=== PATIENT | female | born 1955 | race Caucasian/White ===

== ENCOUNTER 2025-03-31 20:53 | Inpatient (IN) | payer OTHER ==
[~2025-03-31] VITALS: Ht 165.1 cm; Wt 180.2 kg
[~2025-03-31 20:53] MED LIST: ALBU90OI; ALBU90OI INH; AMOCLA875 PO; AMOX500; CEPH500 PO; CETI10; CRUTCH3 USE; CYCL10 PO; FURO40; FURO40 PO; FURO80; HYDACE5 PO; IBUP800 PO; LANS30EC; LEVFLO500 PO; LEVSOD25 PO; METF500; METO5 PO; OMEP20ER PO; OXYACE5T PO; OXYACE7.5T PO; POTCHL10ER; POTCHL20ER PO; RXOXYACE PO; SPIR25; SPIR25 PO; THYROXINE; TRAM50 PO
[2025-03-31] MEDS ORDERED: Ipratropium/Albuterol SulF 2.5-0.5MG/3 ML Amp INH ONE (21:30)
[2025-03-31 21:53] LABS: BASOPHILS ABSOLUTE AUTO 0.06 K/mm3 (0.00-0.23); BASOPHILS PERCENT AUTO 1 % (0-2); EOSINOPHILS ABSOLUTE AUTO 0.21 K/mm3 (0.00-0.68); EOSINOPHILS PERCENT AUTO 3 % (0-6); Hematocrit 41.1 % (33.0-51.0); Hemoglobin 12.3 g/dL (11.5-16.0); IMMATURE GRAN ABSOLUTE AUTO 0.03 K/mm3 (0.00-0.10); IMMATURE GRAN PERCENT AUTO 0 % (0-1); LYMPHOCYTES ABSOLUTE AUTO 1.47 K/mm3 (0.84-5.20); LYMPHOCYTES PERCENT AUTO 19 % (21-46); MONOCYTES ABSOLUTE AUTO 0.65 K/mm3 (0.16-1.47); MONOCYTES PERCENT AUTO 8 % (4-13); Mean Corpuscular HGB Conc 29.9 g/dL (31.5-36.5); Mean Corpuscular Volume 99 fL (80-100); NEUTROPHILS ABSOLUTE AUTO 5.44 K/mm3 (1.96-9.15); NEUTROPHILS PERCENT AUTO 69 % (41-73); NRBC ABSOLUTE 0.00 K/mm3 (0.00-0.02); NRBC Auto 0.0 /100 WBC (0.0-0.2); Platelet Count 196 K/mm3 (150-400); RDW Coefficient Variation 14.7 % (11.7-14.2); RDW Standard Deviation 53.8 fL (35.1-46.3)
[2025-03-31 22:07] LABS: Anion Gap 5.0 mmol/L (3-11); Blood Urea Nitrogen 15.0 mg/dL (8-24); CO2, Blood 42.0 mmol/L (21-32); Calcium, Blood 9.2 mg/dL (8.5-10.1); Chloride, Blood 94.0 mmol/L (98-108); Creatinine, Blood 0.81 mg/dL (0.40-1.00); Glucose, Blood 159.0 mg/dL (70-99); Potassium, Blood 3.8 mmol/L (3.5-5.5); Sodium, Blood 137.0 mmol/L (136-145)
[2025-04-01] MEDS ORDERED: Ipratropium/Albuterol SulF 2.5-0.5MG/3 ML Amp INH ONE (00:40)
[2025-04-01 00:54] LABS: pH Blood Venous 7.45 (7.34-7.37)
[2025-04-01 01:17] LABS: Influenza A, PCR NEGATIVE (NEGATIVE); Influenza B, PCR NEGATIVE (NEGATIVE); Resp Syncytial Virus, PCR NEGATIVE (NEGATIVE); SARS-Cov-2 (COVID-19) PCR, MMC NEGATIVE (NEGATIVE)
[2025-04-01] MEDS ORDERED: FLU VACC TS2025-26(6MOS UP)/PF 45 MCG/0.5 ML SYRINGE IM ONE (02:50)
[2025-04-01] MEDS ORDERED: Furosemide 10 MG / ML 2ML Vial IV SCH (03:00)
[2025-04-01 05:34] LABS: Anti-Xa UFH, PHA Monitoring <0.10 IU/mL; D-Dimer, Quantitative 1.61 mg/L FEU (0.00-0.52); Prothrombin Time Results 11.9 Sec (9.7-11.5)
[2025-04-01] MEDS ORDERED: Insulin Human Lispro 100 Units/ML 3ML Syringe SC SCH ×2 (07:30→16:30)
[2025-04-01] MEDS ORDERED: Heparin Sodium,Porcine/0.5 NS 500 ML IV SCH (07:30)
[2025-04-01 08:35] LABS: Anion Gap 8.0 mmol/L (3-11); Blood Urea Nitrogen 16.0 mg/dL (8-24); CO2, Blood 42.0 mmol/L (21-32); Calcium, Blood 9.2 mg/dL (8.5-10.1); Chloride, Blood 91.0 mmol/L (98-108); Creatinine, Blood 0.73 mg/dL (0.40-1.00); Glucose, Blood 245.0 mg/dL (70-99); Magnesium, Blood 1.6 mg/dL (1.6-2.4); Potassium, Blood 3.8 mmol/L (3.5-5.5); Sodium, Blood 137.0 mmol/L (136-145)
[2025-04-01] MEDS ORDERED: Magnesium Sulf 2 GM/Water 50ML 50 ML IV ONE (12:10)
[2025-04-01] MEDS ORDERED: Enoxaparin 100 MG/ML 1ML SYR SC SCH (13:00)
[2025-04-01] MEDS ORDERED: CETI5 PO (15:22)
[2025-04-01] MEDS ORDERED: OMEP20ER PO (15:22)
[2025-04-01] MEDS ORDERED: LEVSOD75 PO (15:22)
[2025-04-01] MEDS ORDERED: ASPI81CH PO (15:23)
[2025-04-01] MEDS ORDERED: DULERA 100 MCG/13 GM INH (15:23)
[2025-04-01 16:07] VITALS: BP 129/58
--- NOTE | 2025-04-01 18:20 | NUR ---
SHIFT SUMMARY PT ADMITTED FROM ER FOR CHF EXACERBATION. 60MG IV LASIX GIVEN IN ER, GOOD URINE OUTPUT TO PUREWICK WITH CLEAR YELLOW URINE. PT SKIN EXCORIATED UNDER SKIN FOLDS, CLEANSED, POWDER APPLIED AND CLOTH PLACED UNDER PANIS. PT BED BOUND/LIFT PT D/T RLE PAIN AND SOB. A&OX4, VSS, 4 L O2 NC, AFIB IN 80S ON TELE. ABLE TO MAKE NEEDS KNOWN, CALL LIGHT IN REACH.
[2025-04-01 19:21] VITALS: BP 149/70
[2025-04-01] MEDS ORDERED: Miconazole Nitrate 2% 85 GM PWD TOP SCH (21:00)
[2025-04-02] VITALS (7 sets, daily range): BP systolic 125–138; BP diastolic 53–88
[2025-04-02] MEDS ORDERED: Enoxaparin 150 MG/ML 1ML SYR SC SCH
--- NOTE | 2025-04-02 04:36 | NUR ---
SHIFT SUMMARY: PT AOX4, LIFT PATINENT. CALLS APPROPRIATELY AND ABLE TO MAKE NEEDS KNOWN. ABLE TO ASSIST IN TURNS, STILL 2P TURN. CONTINENT, AND ABLE TO VOID WITH BED GRANDA. PUREWICK FOR OCCASIONAL LEAKING. TOLERATING MEDICATIONS WELL. STATES TO BE FEELING MUCH BETTER. SWELLING APPEARS TO HAVE GONE DOWN SIGNIFICANTLY. PT ON 4L OF O2 WHICH IS THEIR BL, REFUSING CPAP THIS EVENING. SOME PAIN IN R LEG, MEDICATED PER EMR. NO ACUTE OVERNIGHT EVENTS. PT IN BED RESTING, BED IN LOWEST POSITION, CALL LIGHT IN REACH. CONTINUING CARE.
[2025-04-02 06:06] LABS: BASOPHILS ABSOLUTE AUTO 0.02 K/mm3 (0.00-0.23); BASOPHILS PERCENT AUTO 0 % (0-2); EOSINOPHILS ABSOLUTE AUTO 0.00 K/mm3 (0.00-0.68); EOSINOPHILS PERCENT AUTO 0 % (0-6); Hematocrit 41.3 % (33.0-51.0); Hemoglobin 12.4 g/dL (11.5-16.0); IMMATURE GRAN ABSOLUTE AUTO 0.03 K/mm3 (0.00-0.10); IMMATURE GRAN PERCENT AUTO 0 % (0-1); LYMPHOCYTES ABSOLUTE AUTO 0.93 K/mm3 (0.84-5.20); LYMPHOCYTES PERCENT AUTO 10 % (21-46); MONOCYTES ABSOLUTE AUTO 0.86 K/mm3 (0.16-1.47); MONOCYTES PERCENT AUTO 9 % (4-13); Mean Corpuscular HGB Conc 30.0 g/dL (31.5-36.5); Mean Corpuscular Volume 99 fL (80-100); NEUTROPHILS ABSOLUTE AUTO 7.37 K/mm3 (1.96-9.15); NEUTROPHILS PERCENT AUTO 80 % (41-73); NRBC ABSOLUTE 0.00 K/mm3 (0.00-0.02); NRBC Auto 0.0 /100 WBC (0.0-0.2); Platelet Count 224 K/mm3 (150-400); RDW Coefficient Variation 14.7 % (11.7-14.2); RDW Standard Deviation 54.3 fL (35.1-46.3)
[2025-04-02 06:57] LABS: Alanine Aminotransfer (ALT/SGP 29 U/L (12-78); Albumin, Blood 3.3 g/dL (3.4-5.0); Albumin/Globulin Ratio 0.8 (0.8-1.8); Anion Gap Unable to Calculate mmol/L (3-11); Aspartate Aminotrans (AST/SGOT 21 U/L (12-37); Bilirubin, Total 0.7 mg/dL (0.1-1.0); Blood Urea Nitrogen 19 mg/dL (8-24); CO2, Blood >45 mmol/L (21-32); Calcium, Blood 9.2 mg/dL (8.5-10.1); Chloride, Blood 91 mmol/L (98-108); Creatinine, Blood 0.78 mg/dL (0.40-1.00); Globulin, Blood 3.9 g/dL (2.2-4.0); Glucose, Blood 136 mg/dL (70-99); Potassium, Blood 3.7 mmol/L (3.5-5.5); Sodium, Blood 136 mmol/L (136-145); Total Protein, Blood 7.2 g/dL (6.4-8.2)
[2025-04-02 10:02] LABS: pH Blood Arterial 7.36 (7.35-7.45)
[2025-04-02] MEDS ORDERED: CHLO25B PO (11:23)
[2025-04-02] MEDS ORDERED: GLIPIZIDE ER2.5 MG PO (11:24)
--- NOTE | 2025-04-02 17:54 | NUR ---
End of shift summary: Patient is alert and oriented x4; pleasant and cooperative with care. Patient on baseline 4L oxygen via NC; noted SOB with exertion. Patient with purewick in place and utilizing bedpan for urination; requires 2 person assist. Patient with complaint of pain and medicated per EMAR. No acute changes this shift. All medications administered per EMAR. Patient utilizing call light appropriately; call light within reach, bed in lowest position. Will continue to monitor until next shift nurse arrives and report is given.
[2025-04-03] MEDS ORDERED: Albuterol 2.5 MG/3 ML VIAL INH PRN (01:00)
[2025-04-03] MEDS ORDERED: Ipratropium/Albuterol SulF 2.5-0.5MG/3 ML Amp INH SCH (01:00)
[2025-04-03] MEDS ORDERED: Formoterol/Mometasone MDI 5/100 mcg 13 GM INH SCH (01:20)
[2025-04-03 03:40] VITALS: BP 147/64
[2025-04-03 05:06] LABS: pH Blood Venous 7.41 (7.34-7.37)
[2025-04-03 06:02] LABS: BASOPHILS ABSOLUTE AUTO 0.07 K/mm3 (0.00-0.23); BASOPHILS PERCENT AUTO 1 % (0-2); EOSINOPHILS ABSOLUTE AUTO 0.16 K/mm3 (0.00-0.68); EOSINOPHILS PERCENT AUTO 2 % (0-6); Hematocrit 40.2 % (33.0-51.0); Hemoglobin 11.9 g/dL (11.5-16.0); IMMATURE GRAN ABSOLUTE AUTO 0.01 K/mm3 (0.00-0.10); IMMATURE GRAN PERCENT AUTO 0 % (0-1); LYMPHOCYTES ABSOLUTE AUTO 1.83 K/mm3 (0.84-5.20); LYMPHOCYTES PERCENT AUTO 20 % (21-46); MONOCYTES ABSOLUTE AUTO 0.85 K/mm3 (0.16-1.47); MONOCYTES PERCENT AUTO 9 % (4-13); Mean Corpuscular HGB Conc 29.6 g/dL (31.5-36.5); Mean Corpuscular Volume 99 fL (80-100); NEUTROPHILS ABSOLUTE AUTO 6.10 K/mm3 (1.96-9.15); NEUTROPHILS PERCENT AUTO 68 % (41-73); NRBC ABSOLUTE 0.00 K/mm3 (0.00-0.02); NRBC Auto 0.0 /100 WBC (0.0-0.2); Platelet Count 206 K/mm3 (150-400); RDW Coefficient Variation 14.9 % (11.7-14.2); RDW Standard Deviation 54.3 fL (35.1-46.3)
--- NOTE | 2025-04-03 06:43 | NUR ---
SHIFT SUMMARY A/Ox4, VSS ON 3-5L. RT CONTACTED FOR WHEEZY, SOB WITH PRODUCTIVE COUGH. POSITIONING AND BREATHING TREATMENTS EFFECTIVE. NO CPAP USE OVERNIGHT. STRICT I/Os MONITORED. AFLUTTER ON TELE. ORTHOPNEA NOTED. R HIP/R GROIN PAIN MANAGED WITH TRAMADOL. ROOMING IN. PT STATED "GOUT MAY BE FLARING UP" AT R BIG TOE, PT WOULD APPRECIATE HOME COLCHICINE ORDER, HOWEVER SHE DOES NOT HAVE DOSAGE INFO AT THIS TIME.
[2025-04-03 07:28] VITALS: BP 125/67
[2025-04-03 07:51] LABS: Alanine Aminotransfer (ALT/SGP 31 U/L (12-78); Albumin, Blood 3.3 g/dL (3.4-5.0); Albumin/Globulin Ratio 0.9 (0.8-1.8); Anion Gap Unable to Calculate mmol/L (3-11); Aspartate Aminotrans (AST/SGOT 30 U/L (12-37); Bilirubin, Total 0.9 mg/dL (0.1-1.0); Blood Urea Nitrogen 22 mg/dL (8-24); Calcium, Blood 9.1 mg/dL (8.5-10.1); Chloride, Blood 88 mmol/L (98-108); Creatinine, Blood 0.86 mg/dL (0.40-1.00); Globulin, Blood 3.6 g/dL (2.2-4.0); Glucose, Blood 118 mg/dL (70-99); Potassium, Blood 3.4 mmol/L (3.5-5.5); Sodium, Blood 134 mmol/L (136-145); Total Protein, Blood 6.9 g/dL (6.4-8.2)
[2025-04-03 07:52] LABS: CO2, Blood >45 mmol/L (21-32)
[2025-04-03 14:58] VITALS: BP 90/68
--- NOTE | 2025-04-03 15:00 | NUR ---
PT ARRIVED AT APPROX 1450 VIA HOSPITAL BED. VSS. PT ON 4L O2 VIA NC. NO C/O SOB. NO C/O CHEST PAIN/PRESSURE. PT AOX4. ABLE TO MAKE NEEDS KNOWN. FAMILY AT BEDSIDE. PT STABLE, RESTING COMFORTABLY IN BED. CALL LIGHT WITHIN REACH AND PT ABLE TO MAKE ALL NEEDS KNOWN. PER PT HER BASELINE O2 IS 3-4L AT HOME.
[2025-04-03] MEDS ORDERED: Colchicine 0.6 MG TAB PO STA (16:17)
[2025-04-03 17:20] VITALS: BP 136/63
--- NOTE | 2025-04-03 17:56 | NUR ---
ASSUMED CARE PT A/O X 4 AT BEDSIDE, NO C/O PAIN NO DISTRESS, LABS AND NEED FOR CPAP EXPLAINED TO PT AND FAMILY, EDUCATED PT ON THE IMPORTANCE OF CPAP, PT AGREED TO WEAR FOR LONG SHE COULD BUT WAS ONLY ABLE T HAVE ON FOR 5 MINS BEFORE REMOVING. PT MAINTAING O2 ON 4L NC,. PT HAVING MORE AND MORE DIFFICULTY STAYING CONTINENT WITH HI VOLUME OF URINE. FAMILY ASKED FOR CASTANEDA TO BE PLACED FOR FEAR OF SKIN BREAKDOWN. CASTANEDA WAS INSERTED PER MD, PT [facility].
[2025-04-03] MEDS ORDERED: Colchicine 0.6 MG TAB PO SCH (18:00)
--- NOTE | 2025-04-03 18:18 | NUR ---
VSS. 3-4L O2 VIA NC. PT INTERMITTENTNLY WEARING CPAP D/T ANXIETY. MD NOTIFIED OF INCREASED ANXIETY, PRN ATARAX ADDED. PT WANTING TO WAIT TO TAKE FIRST DOSE UNTIL BED TIME SO THAT SHE MAY BE MORE COMFORTABLE AND MORE LIKELY TO BE COMPLIANT WITH CPAP WHILE SLEEPING. PT C/O LOW BACK AND LEG PAIN, REPOSITIONED FOR RELIEF. PRN TORADOL Q8H AVAILABLE FOR PAIN. PT IN BARIATRIC BED. FAMILY AT BEDSIDE. COLCHICINE LOADING DOSE GIVEN PER PHARMACY WITH ADDITIONAL SCHEDULED DOSE GIVEN 1HR LATER PER PHARMACY. PT AOX4. NO C/O CHEST PAIN/PRESSURE.
[2025-04-03 19:45] VITALS: BP 131/63
[2025-04-03] MEDS ORDERED: Ondansetron HCl 2 MG / ML 2ML Vial IV ONE ×2 (23:00)
[2025-04-03] MEDS ORDERED: Ondansetron HCl 2 MG / ML 2ML Vial IV PRN ×2 (23:00)
[2025-04-03 23:38] VITALS: BP 136/75
[2025-04-04 04:45] VITALS: BP 121/73
--- NOTE | 2025-04-04 04:50 | NUR ---
SHIFT SUMMARY PT A&O X4. ABLE TO MAKE NEEDS KNOWN. MEDICATED PER EMAR AT BEGINNING OF SHIFT FOR ANXIETY/PAIN. PT WAS SWITCHED FROM CPAP TO BIPAP AND HAS TOLERATED FULL MASK BIPAP SINCE 2300. REPEAT VBG ORDERED FOR THIS AM. PT NEEDING 10L BLEED IN MOST OF THE NIGHT TO MAINTAIN SPO2 WHILE ON BIPAP. ON 4-5L VIA NC WHILE AWAKE. BP STABLE. AFEBRILE. AFLUTTER ON MONITOR WITH HR 80-90S. REDNESS IN MOST SKIN FOLDS T/O BODY, ANTIFUNGAL POWDER AND SILVER CLOTH APPLIED. POOR BED MOBILITY. REPOSITIONING Q2HRS. CASTANEDA CATHETER PATENT AND DRAINING TO GRAVITY. >2L OUT DURING THIS SHIFT. AT BEDSIDE. BED IN LOWEST POSITION AND CALL LIGHT WITHIN REACH. THIS RN WILL REPORT TO ONCOMING DAYSHIFT RN.
[2025-04-04 05:01] LABS: pH Blood Venous 7.45 (7.34-7.37)
[2025-04-04 05:32] LABS: BASOPHILS ABSOLUTE AUTO 0.06 K/mm3 (0.00-0.23); BASOPHILS PERCENT AUTO 1 % (0-2); EOSINOPHILS ABSOLUTE AUTO 0.22 K/mm3 (0.00-0.68); EOSINOPHILS PERCENT AUTO 3 % (0-6); Hematocrit 41.1 % (33.0-51.0); Hemoglobin 12.4 g/dL (11.5-16.0); IMMATURE GRAN ABSOLUTE AUTO 0.02 K/mm3 (0.00-0.10); IMMATURE GRAN PERCENT AUTO 0 % (0-1); LYMPHOCYTES ABSOLUTE AUTO 1.80 K/mm3 (0.84-5.20); LYMPHOCYTES PERCENT AUTO 27 % (21-46); MONOCYTES ABSOLUTE AUTO 0.78 K/mm3 (0.16-1.47); MONOCYTES PERCENT AUTO 12 % (4-13); Mean Corpuscular HGB Conc 30.2 g/dL (31.5-36.5); Mean Corpuscular Volume 99 fL (80-100); NEUTROPHILS ABSOLUTE AUTO 3.85 K/mm3 (1.96-9.15); NEUTROPHILS PERCENT AUTO 57 % (41-73); NRBC ABSOLUTE 0.00 K/mm3 (0.00-0.02); NRBC Auto 0.0 /100 WBC (0.0-0.2); Platelet Count 202 K/mm3 (150-400); RDW Coefficient Variation 14.9 % (11.7-14.2); RDW Standard Deviation 54.7 fL (35.1-46.3)
[2025-04-04 06:13] LABS: Alanine Aminotransfer (ALT/SGP 34 U/L (12-78); Albumin, Blood 3.3 g/dL (3.4-5.0); Albumin/Globulin Ratio 0.9 (0.8-1.8); Aspartate Aminotrans (AST/SGOT 32 U/L (12-37); Bilirubin, Total 0.9 mg/dL (0.1-1.0); Blood Urea Nitrogen 23 mg/dL (8-24); Calcium, Blood 8.8 mg/dL (8.5-10.1); Chloride, Blood 89 mmol/L (98-108); Creatinine, Blood 0.83 mg/dL (0.40-1.00); Globulin, Blood 3.7 g/dL (2.2-4.0); Glucose, Blood 120 mg/dL (70-99); Potassium, Blood 3.5 mmol/L (3.5-5.5); Sodium, Blood 136 mmol/L (136-145); Total Protein, Blood 7.0 g/dL (6.4-8.2)
[2025-04-04 06:14] LABS: Anion Gap Unable to Calculate mmol/L (3-11); CO2, Blood >45 mmol/L (21-32)
[2025-04-04 07:51] VITALS: BP 127/72
[2025-04-04 15:17] VITALS: BP 148/74
--- NOTE | 2025-04-04 17:55 | NUR ---
SHIFT SUMMARY PT ON 5L VIA NC WHILE AWAKE. PT TRIES TO WEAR CPAP WHILE SLEEPING BUT CAN ONLY TOLERATE IT FOR SHORT PERIODS D/T CLAUSTROPHOBIA. PT DESATS WITH REPOSITIONING. NEEDS CUES TO DEEP BREATH. PT HOLDS BREATH WHEN ROLLING. RESATS WELL AFTER DEEP BREATHING THROUGH NC. PUREWICK IN PLACE. SLING IN PLACE. USE LIFT FOR REPOSITIONING HIGHER IN BED. PT AGREEABLE TO CONTINUE TRYING TO USE THE CPAP MUCH POSSIBLE. PT HAS HOME BIPAP AND IS MORE COMFORTABLE WEARING IT. WILL BE TRYING TO LOCATE IT IT IS CURRENTLY PACKED AND HE IS NOT SURE WHICH BOX IT IS IN. ALL OTHER VSS STABLE. AC/HS CBG. AOX4. IS BEDSIDE. NO C/O CHEST PAIN/PRESSURE.
[2025-04-04 20:02] VITALS: BP 129/75
--- NOTE | 2025-04-04 22:37 | NUR ---
PATIENT UPDATE CALL PLACED TO MD VITALE REGARDING PT BECOMING INCREASINGLY ANXIOUS AND BEING UNABLE TO WEAR BIPAP FOR SLEEP. PT REQUESTING SOMETHING TO HELP HER WITH THE ANXIETY. PREVIOUSLY WAS MEDICATED WITH ATARAX PER EMAR. MD VITALE WITH ORDER FOR PO ATIVAN. WILL MEDICATE PER EMAR.
[2025-04-04 23:10] VITALS: BP 139/68
[2025-04-05 03:39] VITALS: BP 134/83
--- NOTE | 2025-04-05 04:37 | NUR ---
SHIFT SUMMARY SEE PREVIOUS NOTE PT A&O X4. ABLE TO MAKE NEEDS KNOWN. PT TOLERATING BIPAP SINCE ATIVAN DOSE. NEEDING 12L BLEED IN TO MAINTAIN SPO2. OCCASIONAL DIFFICULTY WITH GOOD SEAL FOR MASK; PT STILL MOVING MASK OCCASIONALLY BUT HAS MOSTLY LEFT IT ALONE/ON. CONTINUES TO NEED 4-5L VIA NC WHILE AWAKE. AFEBRILE. BP STABLE. AFLUTTER WITH HR 70-80S. REPOSITIONING Q2HRS. LIFT SHEET IN PLACE. PAINFUL WITH MOVEMENTS. MEDICATING PER EMAR. PUREWICK IN PLACE. AT BEDSIDE. BED IN LOWEST POSITION AND CALL LIGHT WITHIN REACH. THIS RN WILL REPORT TO ONCOMING DAYSHIFT RN.
[2025-04-05 08:07] VITALS: BP 133/74
[2025-04-05 08:32] LABS: Anion Gap Unable to Calculate mmol/L (3-11); Blood Urea Nitrogen 22 mg/dL (8-24); Calcium, Blood 9.0 mg/dL (8.5-10.1); Chloride, Blood 87 mmol/L (98-108); Creatinine, Blood 0.91 mg/dL (0.40-1.00); Glucose, Blood 130 mg/dL (70-99); Potassium, Blood 3.5 mmol/L (3.5-5.5); Sodium, Blood 135 mmol/L (136-145)
[2025-04-05 08:33] LABS: CO2, Blood >45 mmol/L (21-32)
--- NOTE | 2025-04-05 10:07 | NUR ---
am note this rn assumed care at 0700. vital signs stable. aflutter 90s. spo2 >90% on 4l nc, which is patient baseline. patient is sleepy, but will awake when stating patient name, but then will fall asleep mid conversation. states this is not patient normal behavior. patient denies pain, chest pain/pressure or shortness of breath. perrla. patient lung sounds upper lobes clear and lower lobes dim. patient had excoriation in folds-pannus, under breast, back and bottom. patient has blister on right anterior leg and bilateral reddness to lower legs. patient has bruise on left ac area of arm. photos taken today and are now in the chart. patient has purwick hooked up in room, with yellow urine. see shift assessment for further detials. patient morning labs came back with co2 >45 and this rn informed md puentes while he was on the floor and vbg ordered and small bipap placed at 0800. this rn called lab at 0935 to ask for update on vbg and to come draw it. vbg drawn. lab called with critical results co2 >105 and ph 7.28. this rn called md puentes and plan for v60 bipap to be put on and repeat vbg after an hour of being on bipap. this rn updated patient of plan. patient had bed bath and linen change this morning.
[2025-04-05 10:10] LABS: pH Blood Venous 7.28 (7.34-7.37)
[2025-04-05 11:10] VITALS: BP 118/57
[2025-04-05 11:38] LABS: pH Blood Venous 7.32 (7.34-7.37)
--- NOTE | 2025-04-05 11:41 | NUR ---
UPDATE md puentes in the room and discussing plan with the patient at 1125. 1138 notifed of vbg ph 7.32 and co2 99. this rn called md puentes and notifed of results. plan to keep bipap on at this time and monitor. this rn updated patient
[2025-04-05 16:30] VITALS: BP 141/112
--- NOTE | 2025-04-05 18:11 | NUR ---
shift summary patient has been on the bipap majority of the bed and off this evening for dinner. patient tolerating off of bipap on 4l nc. patient has been educated on how important it is to use bipap tonight while sleeping or taking naps and patient verablized understanding. is at bedside and helps encourage patient to keep mask on and to wear it. no acute changes. see previous notes.
[2025-04-05 19:37] VITALS: BP 134/76
[2025-04-05 23:37] VITALS: BP 143/75
[2025-04-06 03:02] VITALS: BP 140/73
--- NOTE | 2025-04-06 04:31 | NUR ---
SHIFT SUMMARY PT A&O X4, ABLE TO MAKE NEEDS KNOWN. VSS, AFEBRILE. PT WEARS 4L NC WHILE AWAKE AND BIPAP WHILE SLEEPING. SHE IS TOLERATING BIPAP WELL AT THIS TIME WITH SPO2 >93%. SHE DENIES SOB OR CP AT THIS TIME. PT HAS SIGNIFICANT REDNESS/ EXCORIATION OF PANNUS/ FOLDS. CLEANSED AND DRIED FOLDS AND APPLIED MICONAZOLE POWDER PER EMAR. PW IN PLACE WITH YELLOW URINE. BED IN LOWEST POSITION, CALL LIGHT IN REACH, BREATHING IS EVEN AND UNLABORED.
[2025-04-06 04:36] LABS: BASOPHILS ABSOLUTE AUTO 0.01 K/mm3 (0.00-0.23); BASOPHILS PERCENT AUTO 0 % (0-2); EOSINOPHILS ABSOLUTE AUTO 0.45 K/mm3 (0.00-0.68); EOSINOPHILS PERCENT AUTO 5 % (0-6); Hematocrit 41.4 % (33.0-51.0); Hemoglobin 12.6 g/dL (11.5-16.0); IMMATURE GRAN ABSOLUTE AUTO 0.03 K/mm3 (0.00-0.10); IMMATURE GRAN PERCENT AUTO 0 % (0-1); LYMPHOCYTES ABSOLUTE AUTO 1.03 K/mm3 (0.84-5.20); LYMPHOCYTES PERCENT AUTO 12 % (21-46); MONOCYTES ABSOLUTE AUTO 0.84 K/mm3 (0.16-1.47); MONOCYTES PERCENT AUTO 9 % (4-13); Mean Corpuscular HGB Conc 30.4 g/dL (31.5-36.5); Mean Corpuscular Volume 100 fL (80-100); NEUTROPHILS ABSOLUTE AUTO 6.63 K/mm3 (1.96-9.15); NEUTROPHILS PERCENT AUTO 74 % (41-73); NRBC ABSOLUTE 0.00 K/mm3 (0.00-0.02); NRBC Auto 0.0 /100 WBC (0.0-0.2); Platelet Count 191 K/mm3 (150-400); RDW Coefficient Variation 14.6 % (11.7-14.2); RDW Standard Deviation 53.4 fL (35.1-46.3)
[2025-04-06 05:11] LABS: Alanine Aminotransfer (ALT/SGP 37 U/L (12-78); Albumin, Blood 3.2 g/dL (3.4-5.0); Albumin/Globulin Ratio 0.9 (0.8-1.8); Anion Gap Unable to Calculate mmol/L (3-11); Aspartate Aminotrans (AST/SGOT 38 U/L (12-37); Bilirubin, Total 1.2 mg/dL (0.1-1.0); Blood Urea Nitrogen 19 mg/dL (8-24); Calcium, Blood 9.0 mg/dL (8.5-10.1); Chloride, Blood 86 mmol/L (98-108); Creatinine, Blood 0.75 mg/dL (0.40-1.00); Globulin, Blood 3.7 g/dL (2.2-4.0); Glucose, Blood 112 mg/dL (70-99); Potassium, Blood 3.0 mmol/L (3.5-5.5); Sodium, Blood 133 mmol/L (136-145); Total Protein, Blood 6.9 g/dL (6.4-8.2)
[2025-04-06 05:12] LABS: CO2, Blood >45 mmol/L (21-32)
[2025-04-06 07:48] VITALS: BP 147/74
[2025-04-06 11:10] VITALS: BP 132/67
[2025-04-06 15:48] VITALS: BP 131/60
--- NOTE | 2025-04-06 16:32 | NUR ---
SHIFT SUMMARY: PT ALERT AND ORIENTED X3, ABLE TO FOLLOW COMMANDS AND MAKE NEEDS KNOWN. FORGETFUL AT TIMES. STRENGTH WEAK, EQUAL BILATERALLY. BP STABLE. HR AFLUTTER 80S'. DENIES CP/PRESSURE. PT WITH +3 EDEMA IN BLE. PULSES PALPABLE. AFEBRILE. SPO2 >92% ON 4L NC- BIPAP WHILE SLEEPING, TOLERATES WELL. ABD DISTENDED, BOWEL SOUNDS +. NO BM THIS SHIFT. PT WITH PUREWICK IN PLACE, CONNECTED LCS. DIURESING WELL. OCCUPATIONAL THERAPY ABLE TO WORK WITH PT THIS AFTERNOON, PT ABLE TO TRANSFER TO RECLINER WITH 4 PERSON MAX ASSIST. REMAINS LIFT TRANSFER AT THIS TIME. REPOS Q2 TO MAINTAIN SKIN INTEGRITY. PT WITH RED EXORIATIONS TO LOWER BACK, SEE PICTURES IN CHART. AT BEDSIDE MAJORITY OF THE DAY, UPDATED ON PT PLAN OF CARE. BED IN LOW, CALL LIGHT IN REACH, WILL REPORT TO ONCOMING RN.
[2025-04-06 20:03] VITALS: BP 136/66
[2025-04-07 00:02] VITALS: BP 124/65
[2025-04-07 03:03] VITALS: BP 128/81
[2025-04-07 03:36] LABS: pH Blood Venous 7.54 (7.34-7.37)
[2025-04-07 03:49] LABS: BASOPHILS ABSOLUTE AUTO 0.02 K/mm3 (0.00-0.23); BASOPHILS PERCENT AUTO 0 % (0-2); EOSINOPHILS ABSOLUTE AUTO 0.45 K/mm3 (0.00-0.68); EOSINOPHILS PERCENT AUTO 6 % (0-6); Hematocrit 41.4 % (33.0-51.0); Hemoglobin 12.8 g/dL (11.5-16.0); IMMATURE GRAN ABSOLUTE AUTO 0.03 K/mm3 (0.00-0.10); IMMATURE GRAN PERCENT AUTO 0 % (0-1); LYMPHOCYTES ABSOLUTE AUTO 0.98 K/mm3 (0.84-5.20); LYMPHOCYTES PERCENT AUTO 12 % (21-46); MONOCYTES ABSOLUTE AUTO 0.81 K/mm3 (0.16-1.47); MONOCYTES PERCENT AUTO 10 % (4-13); Mean Corpuscular HGB Conc 30.9 g/dL (31.5-36.5); Mean Corpuscular Volume 98 fL (80-100); NEUTROPHILS ABSOLUTE AUTO 5.80 K/mm3 (1.96-9.15); NEUTROPHILS PERCENT AUTO 72 % (41-73); NRBC ABSOLUTE 0.00 K/mm3 (0.00-0.02); NRBC Auto 0.0 /100 WBC (0.0-0.2); Platelet Count 204 K/mm3 (150-400); RDW Coefficient Variation 14.7 % (11.7-14.2); RDW Standard Deviation 52.5 fL (35.1-46.3)
[2025-04-07 04:14] LABS: Alanine Aminotransfer (ALT/SGP 39 U/L (12-78); Albumin, Blood 3.1 g/dL (3.4-5.0); Albumin/Globulin Ratio 0.9 (0.8-1.8); Aspartate Aminotrans (AST/SGOT 39 U/L (12-37); Bilirubin, Total 1.4 mg/dL (0.1-1.0); Blood Urea Nitrogen 20 mg/dL (8-24); Calcium, Blood 8.9 mg/dL (8.5-10.1); Chloride, Blood 86 mmol/L (98-108); Creatinine, Blood 0.74 mg/dL (0.40-1.00); Globulin, Blood 3.5 g/dL (2.2-4.0); Glucose, Blood 124 mg/dL (70-99); Potassium, Blood 2.8 mmol/L (3.5-5.5); Sodium, Blood 135 mmol/L (136-145); Total Protein, Blood 6.6 g/dL (6.4-8.2)
[2025-04-07 04:16] LABS: Anion Gap Unable to Calculate mmol/L (3-11)
[2025-04-07 04:17] LABS: CO2, Blood >45 mmol/L (21-32)
--- NOTE | 2025-04-07 05:20 | NUR ---
NOC SHIFT SUMMARY PT IS A&O X3-4, CONFUSED AT TIMES, SHE HAS NOT GOT MUCH SLEEP SINCE ADMIT AND CO2 REMAINS ELAVATED. CRITICAL PH THIS AM OF 7.54 (SEE VBG). PT DENIED NEED FOR BIPAP FOR SEVERAL HOURS UNTIL THIS RN AND RT EDUCATED PT AND SHE FINALLY WAS AGREEABLE TO PUT IT ON. ONCE PUTTING BIPAP ON SHE REQUIRED FREQUENT BREAKS FROM IT AND NEEDING IT OFF. WHILE AWAKE AND NOT TRYING TO REST SHE WEARS 4L VIA NC. SATURATIONS >90% ASIDE FROM ONE EPISODE OF DESAT WHILE TURNING ON HER LEFT SIDE IN BED. PT IS UNABLE TO REPOSTION HERSELF OR DO SELF CARE TASKS, SPOUSE HAS REMAINED AT BEDSIDE ALL SHIFT AND IS VERY HELPFUL WITH CARE. PT IS A TOTAL CARE, LIFT PT FOR REPOSTIONING. PURWICK IS IN PLACE FOR VOIDING. PT NOTED TO HAVE RED RASH ON HER BUTTOCK, HIPS, BACK AND LEGS. CLEANED, DRIED AND POWDER APPLIED PER EMAR. PT ALSO COMPLAINS OF FREQUENT PAIN IN HER BACK, HIPS, LEGS, AND SHOULDERS (WHICH WAS NOT RELIEVED BY PRN PAIN MEDICATIONS). CALL LIGHT IS IN REACH, WILL REPORT TO ONCOMING RN.
[2025-04-07] MEDS ORDERED: Potassium Chl 20MEQ/Water100ML 100 ML IV SCH (06:45)
[2025-04-07 07:45] VITALS: BP 139/73
[2025-04-07] MEDS ORDERED: NS 250 ML IV PRN (07:45)
[2025-04-07] MEDS ORDERED: Triamcinolone Acet 0.5% Cream 15 gm TOP SCH (09:00)
[2025-04-07] MEDS ORDERED: PRAMOXINE HCL/CALAMINE LOTION 177 ML BTL TOP SCH (09:00)
[2025-04-07 11:24] VITALS: BP 141/80
[2025-04-07 16:39] VITALS: BP 130/67
--- NOTE | 2025-04-07 19:18 | NUR ---
SHIFT SUMMARY: PT HAS BEEN A&Ox4, DROWSY/SLEEPY AT TIMES, ABLE TO COMMUNICATE NEEDS, COOPERATIVE W/CARE, GENERALLY WEAK. PT DECLINES BIPAP DURING THE DAY, O2 SATS MAINTAINED >90% ON BASELINE 4L/MIN NC. PT DENIES CP, AFLUTTER ON MONITOR, RATE 80s-90s. DIURESIS CONTINUES, PUREWICK IN PLACE, DRAINING DARK YELLOW COLORED URINE TO LOW CONT SUCTION. NEW ORDERS RECEIVED FOR RASH, PT MEDICATED PER EMAR, VERBALIZES SOME RELIEF AFTER ADMINISTRATION. OCC THERAPY TO BEDSIDE TODAY, PT TRANSFERS TO RECLINER VIA LIFT FOR A SHORT PERIOD OF TIME, THEN BACK TO BED. Q2H REPOSITIONING IN PLACE PT ALLOWS, PT W/FREQUENT C/O PAIN, DENIES PRN PAIN MEDICATIONS THIS SHIFT. BED IN LOW POSITION, CALL LIGHT IN REACH.
[2025-04-07 19:31] VITALS: BP 125/54
[2025-04-08 00:02] VITALS: BP 136/84
[2025-04-08 03:44] VITALS: BP 128/59
[2025-04-08 03:48] LABS: pH Blood Venous 7.44 (7.34-7.37)
[2025-04-08 04:26] LABS: BASOPHILS ABSOLUTE AUTO 0.02 K/mm3 (0.00-0.23); BASOPHILS PERCENT AUTO 0 % (0-2); EOSINOPHILS ABSOLUTE AUTO 0.50 K/mm3 (0.00-0.68); EOSINOPHILS PERCENT AUTO 6 % (0-6); Hematocrit 42.7 % (33.0-51.0); Hemoglobin 13.2 g/dL (11.5-16.0); IMMATURE GRAN ABSOLUTE AUTO 0.03 K/mm3 (0.00-0.10); IMMATURE GRAN PERCENT AUTO 0 % (0-1); LYMPHOCYTES ABSOLUTE AUTO 0.90 K/mm3 (0.84-5.20); LYMPHOCYTES PERCENT AUTO 11 % (21-46); MONOCYTES ABSOLUTE AUTO 0.95 K/mm3 (0.16-1.47); MONOCYTES PERCENT AUTO 11 % (4-13); Mean Corpuscular HGB Conc 30.9 g/dL (31.5-36.5); Mean Corpuscular Volume 97 fL (80-100); NEUTROPHILS ABSOLUTE AUTO 5.96 K/mm3 (1.96-9.15); NEUTROPHILS PERCENT AUTO 71 % (41-73); NRBC ABSOLUTE 0.00 K/mm3 (0.00-0.02); NRBC Auto 0.0 /100 WBC (0.0-0.2); Platelet Count 207 K/mm3 (150-400); RDW Coefficient Variation 14.8 % (11.7-14.2); RDW Standard Deviation 53.0 fL (35.1-46.3)
[2025-04-08 04:56] LABS: Alanine Aminotransfer (ALT/SGP 47.0 U/L (12-78); Albumin, Blood 3.1 g/dL (3.4-5.0); Albumin/Globulin Ratio 0.8 (0.8-1.8); Anion Gap 5.0 mmol/L (3-11); Aspartate Aminotrans (AST/SGOT 44.0 U/L (12-37); Bilirubin, Total 1.4 mg/dL (0.1-1.0); Blood Urea Nitrogen 18.0 mg/dL (8-24); CO2, Blood 44.0 mmol/L (21-32); Calcium, Blood 9.1 mg/dL (8.5-10.1); Chloride, Blood 89.0 mmol/L (98-108); Creatinine, Blood 0.72 mg/dL (0.40-1.00); Globulin, Blood 3.7 g/dL (2.2-4.0); Glucose, Blood 137.0 mg/dL (70-99); Potassium, Blood 2.8 mmol/L (3.5-5.5); Sodium, Blood 135.0 mmol/L (136-145); Total Protein, Blood 6.8 g/dL (6.4-8.2)
--- NOTE | 2025-04-08 05:41 | NUR ---
NOC SHIFT SUMMARY PT IS A&O X4, COMMUNICATES NEEDS. PATIENT VERBALIZES MULTIPLE COMFORT NEEDS IN SHORT SUCCESSION (WATER, REPOSTIONING, ADDITIONAL PILLOWS). PROVIDED REASSURANCE AND MET REQUESTS ABLE. PT EDORSES PAIN THAT IS OFTEN NOT RESOLVED WITH STAFF ATTEMPS TO REPOSTIONS HER. PRN PAIN MEDICATION PROVIDED. PT UNABLE TO ASSIST IN MOST CARE TASKS SUCH BRIEF CHANGES OR POSTION CHANGES. PT UTILIZING PUREWICK FOR VOIDS, X3 BED CHANGES THIS SHIFT FOR FAILURE OF PUREWICK TO SUNCTION URINE PROP. PT ABLE TO VIVI BIPAP FOR SHORT SESTIONS DURING THE NIGHT, RT TO BEDSIDE MULTIPLE TIMES TO HELP WITH MASK AND BIPAP SETTINGS. WEARS 4L NC AT BASELINE. A FEW EPISODES OF DESATURATION ON BIPAP D/T PT FINDING MASK UNCOMFORTABLE. K OF 2.8 THIS AM, DR. PATINO CALLED FOR REPLACEMENT. CALL LIGHT IN REACH. PATIENT SPOUSE AT BEDSIDE ALL SHIFT. WILL REPORT TO ONCOMING RN.
[2025-04-08 07:45] VITALS: BP 117/70
--- NOTE | 2025-04-08 10:51 | NUR ---
Spiritual Care Visit. Pt. is awake in bed. Spouse and ALEC are at bedside and welcome my visit. Facilitated a life review and update with the bedside family. Listened with empathy and interest. Some of the family are known to this civil clerk from the community. Pt. displayed evidnce of occasional somnolence and is mostly not engaged with the visit. Prayed for the Pt. Spouse and ALEC verbalize gratitude for the spiritual care visit and welcome this civil clerk to return.
[2025-04-08 11:40] VITALS: BP 145/61
[2025-04-08] MEDS ORDERED: FURO20 PO (12:56)
[2025-04-08] MEDS ORDERED: LORA10ER PO (12:56)
[2025-04-08] MEDS ORDERED: FURO40 PO (12:56)
[2025-04-08] MEDS ORDERED: GABA300 PO (12:59)
[2025-04-08] MEDS ORDERED: COLCHICINE0.6 MG PO (12:59)
[2025-04-08] MEDS ORDERED: JARDIANCE10 MG PO (12:59)
[2025-04-08] MEDS ORDERED: MICONAZOLE NITR85 GM TOP (13:01)
[2025-04-08] MEDS ORDERED: [UNRECOGNIZED DRUG - OTHER] TOP (13:02)
[2025-04-08] MEDS ORDERED: XARELTO20 MG PO (13:03)
[2025-04-08] MEDS ORDERED: SPIR25 PO (13:03)
[2025-04-08] MEDS ORDERED: Triamcinolone A15 G3 TOP (13:04)
[2025-04-08 15:10] VITALS: BP 147/68
[2025-04-08 22:10] VITALS: BP 102/54
[2025-04-09 01:29] VITALS: BP 128/74
[2025-04-09 05:15] LABS: pH Blood Venous 7.55 (7.34-7.37)
[2025-04-09 05:18] LABS: BASOPHILS ABSOLUTE AUTO 0.04 K/mm3 (0.00-0.23); BASOPHILS PERCENT AUTO 1 % (0-2); EOSINOPHILS ABSOLUTE AUTO 0.60 K/mm3 (0.00-0.68); EOSINOPHILS PERCENT AUTO 8 % (0-6); Hematocrit 47.2 % (33.0-51.0); Hemoglobin 14.3 g/dL (11.5-16.0); IMMATURE GRAN ABSOLUTE AUTO 0.04 K/mm3 (0.00-0.10); IMMATURE GRAN PERCENT AUTO 1 % (0-1); LYMPHOCYTES ABSOLUTE AUTO 1.06 K/mm3 (0.84-5.20); LYMPHOCYTES PERCENT AUTO 13 % (21-46); MONOCYTES ABSOLUTE AUTO 0.99 K/mm3 (0.16-1.47); MONOCYTES PERCENT AUTO 12 % (4-13); Mean Corpuscular HGB Conc 30.3 g/dL (31.5-36.5); Mean Corpuscular Volume 99 fL (80-100); NEUTROPHILS ABSOLUTE AUTO 5.25 K/mm3 (1.96-9.15); NEUTROPHILS PERCENT AUTO 66 % (41-73); NRBC ABSOLUTE 0.00 K/mm3 (0.00-0.02); NRBC Auto 0.0 /100 WBC (0.0-0.2); Platelet Count 229 K/mm3 (150-400); RDW Coefficient Variation 15.3 % (11.7-14.2); RDW Standard Deviation 54.4 fL (35.1-46.3)
[2025-04-09 05:19] VITALS: BP 119/76
[2025-04-09 05:38] LABS: Alanine Aminotransfer (ALT/SGP 58.0 U/L (12-78); Albumin, Blood 3.1 g/dL (3.4-5.0); Albumin/Globulin Ratio 0.7 (0.8-1.8); Anion Gap 7.0 mmol/L (3-11); Aspartate Aminotrans (AST/SGOT 61.0 U/L (12-37); Bilirubin, Total 1.2 mg/dL (0.1-1.0); Blood Urea Nitrogen 19.0 mg/dL (8-24); CO2, Blood 38.0 mmol/L (21-32); Calcium, Blood 8.9 mg/dL (8.5-10.1); Chloride, Blood 93.0 mmol/L (98-108); Creatinine, Blood 0.8 mg/dL (0.40-1.00); Globulin, Blood 4.2 g/dL (2.2-4.0); Glucose, Blood 119.0 mg/dL (70-99); Potassium, Blood 3.2 mmol/L (3.5-5.5); Sodium, Blood 135.0 mmol/L (136-145); Total Protein, Blood 7.3 g/dL (6.4-8.2)
--- NOTE | 2025-04-09 05:51 | NUR ---
SHIFT SUMMARY pT a&oX4, ABLE TO COMMUNICATE NEEDS (TURNS, POSITIONING, THIRST, MOISTURE, PAIN). NEEDS MET UPON REQUEST AND REASSURANCE GIVEN. pT ENDORSES PAIN IN BACK, RT HIP. AND BILAT LE. PRN PAIN MEDICATION PROVIDED. PT UTILIZING PUREWICK FOR VOIDING, ABLE TO ASSIST IN TURNS. PT POOLY TOLERATED BIPAP THROUGHOUT THE NIGHT, ALTERNATING WITH NASAL CANNULA WHEN OFF BIPAP. PT STATES HARNESS IS POOR FIT. pH 7.55 CALLED IN FROM LAB. CHARGE NOTIFIES.
--- NOTE | 2025-04-09 07:33 | NUR ---
ASSUMPTION NOTE: THIS RN TO ASSUME CARE OF PATIENT. PATIENT AWAKE AND GETTING BREATH TREATMENT. PATIENT REPORTED SOME PAIN IN HER BACK AND NOT GETTING TOO MUCH SLEEP LAST NIGHT. BOWEL PREP WAS ORDERED WELL AND THE RESIDENTS ROUNDED AND SPOKE WITH HER. PATIENT AWARE DISCHARGE IS SET FOR TODAY AND AWAING A TRILOGY TO TAKE HOME. PATIENT VITAL SIGNS STABLE & THIS RN TO LOOK AT EMAR FOR PAIN MEDICATIONS. PATIENT HAS CALL LIGHT WITHIN REACH, BED IN LOWEST POSITION & STATING NOTHING ELSE IS NEEDED AT THIS TIME.
[2025-04-09 07:38] VITALS: BP 131/61
[2025-04-09] MEDS ORDERED: Polyethylene Glycol 3350 17 gm PO SCH (09:00)
--- NOTE | 2025-04-09 10:15 | NUR ---
MD CONTACTED: THIS RN CALLED MD REGARDING POTASSIUM ORDER FOR DAILY AND ALREADY BEING GIVEN A ONE TIME DOSE THIS AM. MD GAVE ORDER TO CONTINUE THE DAILY DOSE WELL.
--- NOTE | 2025-04-09 11:23 | NUR ---
RESIDENT CALLED: THIS RN CALLED RESIDENT REGARDING PATIENT STATING SHE FEELS SHE NEEDS SOMETHING ELSE TO HELP WITH HAVING A BOWEL MOVEMENT. RESIDENT GAVE VERBAL ORDER FOR A SUPPSOTIRY.
[2025-04-09] MEDS ORDERED: Clobetasol Prop 0.05% Cream 15 gm TOP SCH (13:00)
[2025-04-09 13:05] VITALS: BP 139/79
[2025-04-09 15:36] VITALS: BP 140/66
--- NOTE | 2025-04-09 17:00 | NUR ---
SHIFT SUMMARY: PATIENT IS ALERT AND ORIENTED X4 & COOPERATIVE WITH HER CARE, IS ABLE TO MAKE NEEDS KNOWN & USES CALL LIGHT APPROPRIATELY. PATIENT SATTING >92% ON 4 LITERS VIA NASAL CANNULA. ON TELE SHOWING AFLUTTER WITH RATE IN 80-90 S. PATIENT WORKED WITH PHYSICAL THERAPY FOR A BIT TODAY AND WAS ABLE TO GET INTO THE CHAIR AT BEDSIDE WITH 2 PERSON ASSIST WITHOUT THE LIFT. PLAN CONTINUES TO AWAIT INSURANCE APPROVAL FOR A HOME TRILOGY. PATIENT AND FAMILY AWARE OF THAT AND ASKED IF THERE WAS A POSSIBLE DISCHARGE ON PATIENT S CPAP MACHINE. THIS RN CALLED RESIDENT AND RESIDENT OR ATTENDING TO COME DOWN AND TALK WITH PATIENT & FAMILY. PATIENT CURRENTLY IN BED CHATTING WITH ,CALL LIGHT WITHIN REACH, BED IN LOWEST LOCKED POSITION & STATING NOTHING ELSE IS NEEDED AT THIS TIME.
[2025-04-09 20:08] VITALS: BP 115/77
[2025-04-09] MEDS ORDERED: DiphenhydrAMINE HCL/Zinc Acet Cream TOP PRN (23:00)
[2025-04-10 00:43] VITALS: BP 120/68
[2025-04-10 03:26] VITALS: BP 132/91
[2025-04-10 03:34] VITALS: BP 92/57
[2025-04-10 04:11] LABS: pH Blood Venous 7.39 (7.34-7.37)
[2025-04-10 04:24] LABS: BASOPHILS ABSOLUTE AUTO 0.04 K/mm3 (0.00-0.23); BASOPHILS PERCENT AUTO 1 % (0-2); EOSINOPHILS ABSOLUTE AUTO 0.68 K/mm3 (0.00-0.68); EOSINOPHILS PERCENT AUTO 8 % (0-6); Hematocrit 43.3 % (33.0-51.0); Hemoglobin 13.2 g/dL (11.5-16.0); IMMATURE GRAN ABSOLUTE AUTO 0.03 K/mm3 (0.00-0.10); IMMATURE GRAN PERCENT AUTO 0 % (0-1); LYMPHOCYTES ABSOLUTE AUTO 1.27 K/mm3 (0.84-5.20); LYMPHOCYTES PERCENT AUTO 16 % (21-46); MONOCYTES ABSOLUTE AUTO 1.06 K/mm3 (0.16-1.47); MONOCYTES PERCENT AUTO 13 % (4-13); Mean Corpuscular HGB Conc 30.5 g/dL (31.5-36.5); Mean Corpuscular Volume 98 fL (80-100); NEUTROPHILS ABSOLUTE AUTO 5.02 K/mm3 (1.96-9.15); NEUTROPHILS PERCENT AUTO 62 % (41-73); NRBC ABSOLUTE 0.00 K/mm3 (0.00-0.02); NRBC Auto 0.0 /100 WBC (0.0-0.2); Platelet Count 238 K/mm3 (150-400); RDW Coefficient Variation 15.5 % (11.7-14.2); RDW Standard Deviation 55.2 fL (35.1-46.3)
--- NOTE | 2025-04-10 04:37 | NUR ---
Shift note: Patient remains A&Ox4, very pleasant and cooperative in her care; at the bedside. Patient managed roughly 50% of the night on her bipap, significant improvement over the night before. RT came and adjusted her harness and that seems to have help her tolerate better. Patient complained of itchiness throughout the evening. Provider ordered benadryl cream which was applies all over her trunk, and per patient provided relief where the other remedies had not. Pt remains deeply deconditioned, but endorses able to get up to chair 9/24 AM with PT to assist. No concerning events overnight. Patient and look forward to discahrge to home.
[2025-04-10 04:49] LABS: Alanine Aminotransfer (ALT/SGP 51.0 U/L (12-78); Albumin, Blood 3.2 g/dL (3.4-5.0); Albumin/Globulin Ratio 0.8 (0.8-1.8); Anion Gap 7.0 mmol/L (3-11); Aspartate Aminotrans (AST/SGOT 46.0 U/L (12-37); Bilirubin, Total 1.1 mg/dL (0.1-1.0); Blood Urea Nitrogen 21.0 mg/dL (8-24); CO2, Blood 38.0 mmol/L (21-32); Calcium, Blood 9.1 mg/dL (8.5-10.1); Chloride, Blood 95.0 mmol/L (98-108); Creatinine, Blood 0.81 mg/dL (0.40-1.00); Globulin, Blood 3.9 g/dL (2.2-4.0); Glucose, Blood 119.0 mg/dL (70-99); Potassium, Blood 3.2 mmol/L (3.5-5.5); Sodium, Blood 137.0 mmol/L (136-145); Total Protein, Blood 7.1 g/dL (6.4-8.2)
[2025-04-10 08:17] VITALS: BP 129/59
--- NOTE | 2025-04-10 09:43 | NUR ---
ASSUMPTION OF CARE: PATIENT IS ALERT AND ORIENTED X 4 ABLE TO MAKE NEEDS KNOWN, DENIES CHEST PAIN PRESSURE OR SOB AT REST. ON HOME BL O2 DEMAND, ABLE TO TOLERATE APPROXIMATELY 4 HOURS THROUGH THE NIGHT, STILL MILDLY DROWSY BUT ABLE TO STAY AWAKE AND HAVE CONVERSATIONS, SLOWLY IMPROVING OF GEN WEAKNESS. NO ACUTE CONCERNS, STILL AWAITING HOME NON INVASIVE VENT APPROVAL FOR DISCHARGE. PATIENT USING THE LIFT FOR TRANSFERS.
[2025-04-10 16:11] VITALS: BP 127/67
--- NOTE | 2025-04-10 16:31 | NUR ---
SHIFT NOTE: NO ACUTE CHANGES SINCE PREVIOUS NOTE. PT A/OX4 ABLE TO MAKE NEEDS KNOWN. SHE IS ON HER BASELINE O2 WITH SPO2>90%. SHE IS ON TELE IN FLUTTER WITH NO ACUTE CHANGES OR EVENTS. VSS. SHE USES BEDPAN FOR TOILETING NEEDS. PT WAS UP TO CHAIR FOR A BIT THIS AFTERNOON WITH VIA STAND PIVOT AND 3 STAFF MEMBERS TO ASSIST. AT BEDSIDE AND UPDATED ON PLAN OF CARE.
[2025-04-10 19:53] VITALS: BP 119/56
--- NOTE | 2025-04-11 00:56 | NUR ---
sleep study ongoing. continues to run afib on tele w/ rate in the 70s-80s. on cpap w/ 4 l o2 bleed in at this time.
[2025-04-11 01:18] VITALS: BP 114/53
[2025-04-11 03:22] VITALS: BP 135/78
[2025-04-11 03:44] LABS: pH Blood Venous 7.54 (7.34-7.37)
[2025-04-11 04:06] LABS: Hematocrit 42.6 % (33.0-51.0); Hemoglobin 13.2 g/dL (11.5-16.0); Mean Corpuscular HGB Conc 31.0 g/dL (31.5-36.5); Mean Corpuscular Volume 97 fL (80-100); NRBC ABSOLUTE 0.00 K/mm3 (0.00-0.02); NRBC Auto 0.0 /100 WBC (0.0-0.2); Platelet Count 245 K/mm3 (150-400); RDW Coefficient Variation 15.6 % (11.7-14.2); RDW Standard Deviation 55.1 fL (35.1-46.3)
[2025-04-11 04:31] LABS: Anion Gap 5.0 mmol/L (3-11); Blood Urea Nitrogen 25.0 mg/dL (8-24); CO2, Blood 37.0 mmol/L (21-32); Calcium, Blood 9.3 mg/dL (8.5-10.1); Chloride, Blood 97.0 mmol/L (98-108); Creatinine, Blood 0.84 mg/dL (0.40-1.00); Glucose, Blood 128.0 mg/dL (70-99); Potassium, Blood 3.3 mmol/L (3.5-5.5); Sodium, Blood 136.0 mmol/L (136-145)
--- NOTE | 2025-04-11 04:39 | NUR ---
SHIFT SUMMARY. SHIFT HAS BEEN UNREMARKABLE. PT AOX4, COOPERATIVE, ABLE TO MAKE NEEDS KNOWN. HAS BEEN ABLE TO REST COMFORTABLY THROUGHOUT MUCH OF SHIFT. SLEEP STUDY ONGOING OVERNIGHT, WAS ABLE TO SLEEP FOR FIRST SEVERAL HOURS AND HAS HAD MORE DIFFICULT TIME SLEEPING DURING LATTER HALF OF SHIFT. PAIN HAS BEEN ADEQUATELY MANAGED VIA EMAR. CONTINUES TO RUN AFIB ON TELE W/ RATE PRIMARILY IN THE 80s OVERNIGHT. HAS BEEN CONTINENT THROUGHOUT SHIFT, CALLS APPROPRIATELY FOR ASSISTANCE W/ BEDPAN. BEDREST T/O SHIFT. AT BEDSIDE T/O SHIFT, HAS ASSISTED W/ REPOSITIONING PATIENT REQUESTS. VITALS STABLE THROUGHOUT SHIFT. BED LOCKED IN LOWEST POSITION. CALL LIGHT LEFT WITHIN REACH. CONTINUING TO MONITOR.
[2025-04-11 05:06] LABS: BAND PERCENT MAN 3 % (0-8); BASOPHILS ABSOLUTE MAN 0.00 K/mm3 (0.00-0.23); BASOPHILS PERCENT MAN 0 % (0-2); EOSINOPHILS ABSOLUTE MAN 0.78 K/mm3 (0.00-0.68); EOSINOPHILS PERCENT MAN 11 % (0-6); LYMPHOCYTES % ATYPICAL MANUAL 5 % (0-0); LYMPHOCYTES ABSOLUTE MAN 1.43 K/mm3 (0.84-5.20); LYMPHOCYTES PERCENT MAN 15 % (21-46); MONOCYTES ABSOLUTE MAN 0.78 K/mm3 (0.16-1.47); MONOCYTES PERCENT MAN 11 % (4-13); MYELOCYTE ABSOLUTE MAN 0.07 K/mm3 (0.00-0.00); MYELOCYTE PERCENT MAN 1 % (0-0); NEUTROPHILS ABSOLUTE MAN 4.07 K/mm3 (1.96-9.15); SEG NEUTROPHILS PERCENT MAN 54 % (41-73)
--- NOTE | 2025-04-11 08:46 | NUR ---
Spiritual Care Visit. Pt. is awake in bed when she welcomes my visit. Pt. is pleasant and verbalized that she remembers this brush maker from previous visits. Spouse is at bedside. Facilitated an update. Pt. verbalized an expectation that she might be discharged sometime today. Pt. displayed evidence of being aware, engaged, and encouraged. Prayed for the Pt. Pt. verbalized gratitude for the spiritual care visit.
[2025-04-11 08:55] VITALS: BP 129/62
[2025-04-11 11:09] VITALS: BP 158/115
[2025-04-11] MEDS ORDERED: MIRALAX17 GM PO (12:58)
[2025-04-11] MEDS ORDERED: MICONAZOLE NITRATE TOP (13:02)
[2025-04-11] MEDS ORDERED: Benadryl Itch28.3 G1 TOP (13:03)
--- NOTE | 2025-04-11 14:15 | NUR ---
DISHCARGE NOTE: PATIENT HAS BEEN ALERT AND ORIENTED X 4 ABLE TO MAKE NEEDS KNOWN, DENIES CHEST PAIN PRESSURE OR SOB AT REST. NO ACUTE DISTRESS. PATIENT WITH HOME 4L CAPACITOR, HOME MOBILITY SCOOTER, GREATER THAN 30 MINUTES GIVEN ON EDUCATION HEART FAILURE, HYPERCAPNEA, BLOOD GAS, MEDICATIONS. AND PATIENT AGREED AND VERBALIZED UNDERSTANDING. PATIENT VSS FOR PATIENT AFEBRILE, HOME CPAP AND ALL BELONGINGS WITH PATIENT. PCT WALKED BELONGINGS WITH AND PATIENT. NO ACUTE CONCERNS, HAND WRITTEN ORDERS FOR BMP FROM DR. LYNCH IN DISCHARGE PACKET. PCU CHEMIST FOOD SPOKE WITH [facility] SPECIAL[facility] HOME O2 EVALUATION DONE FOR BASELINE O2 NEEDS, HAS PCU NUMBER AND [facility] NUMBER FOR ANY CONCERNS OR QUESTIONS. [employer] FAXED MEDICATIONS.
== END 2025-04-11 14:13 | disposition home health service (06) | DRG 291 ==
LOC: ER 20:53 → MEDS 04-01 02:08 → ERHOLD 04-01 02:08 → PCU 04-01 02:08 → MEDS 04-01 15:07 → PCU 04-03 14:55
PROVIDERS: Emergency Medicine; Family Medicine; Hospitalist; Internal Medicine; Registered Nurse; Student in an Organized Health Care Education/Training Program; ADMIT Internal Medicine
PROC: 5A09457 Assistance with Respiratory Ventilation, 24-96 Consecutive Hours, Continuous Positive Airway Pressure (ICD-10-PCS; principal; 2025-04-01)
PROC: 4A033R1 Measurement of Arterial Saturation, Peripheral, Percutaneous Approach (ICD-10-PCS; 2025-04-02)
DX: I50.33 Acute on chronic diastolic (congestive) heart failure (principal); J96.01 Acute respiratory failure with hypoxia; J96.22 Acute and chronic respiratory failure with hypercapnia; Z68.43 Body mass index [BMI] 50.0-59.9, adult; E87.4 Mixed disorder of acid-base balance; E66.2 Morbid (severe) obesity with alveolar hypoventilation; E87.1 Hypo-osmolality and hyponatremia; J44.89 Other specified chronic obstructive pulmonary disease; E11.9 Type 2 diabetes mellitus without complications; I87.8 Other specified disorders of veins; E03.9 Hypothyroidism, unspecified; E87.6 Hypokalemia; I48.91 Unspecified atrial fibrillation; R21 Rash and other nonspecific skin eruption; B37.31 Acute candidiasis of vulva and vagina; M54.50 Low back pain, unspecified; K59.00 Constipation, unspecified; M25.551 Pain in right hip; M25.552 Pain in left hip; Z79.890 Hormone replacement therapy; Z79.82 Long term (current) use of aspirin; Z99.81 Dependence on supplemental oxygen; Z88.8 Allergy status to other drugs, medicaments and biological substances; Z88.1 Allergy status to other antibiotic agents; Z79.51 Long term (current) use of inhaled steroids; Z79.1 Long term (current) use of non-steroidal anti-inflammatories (NSAID); Z79.899 Other long term (current) drug therapy; Z91.148 Patient's other noncompliance with medication regimen for other reason; Z88.7 Allergy status to serum and vaccine
CPT/HCPCS: 36415; 36600; 71045; 80048; 80053; 82803; 82947; 83735; 83880; 84439; 84443; 84481; 84484; 85007; 85025; 85027; 85379; 85520; 85610; 87637; 93005; 93010; 93971; 94640; 94660; 94664; 94761; 94762; 96374; 97110; 97161; 97165; 97530; 99285-25; A6590; A9270; C8929; J1120; J1644; J1650; J1938; J2405; J2919; J3475; J3480; J7050; Q9957